=== PATIENT | female | born 1970 | race Caucasian/White ===

== ENCOUNTER 2017-03-30 22:52 | Emergency (ER) | payer OTHER ==
[~2017-03-30] VITALS: Ht 160 cm; Wt 105.8 kg
[2017-03-31 03:13] VITALS: BP 143/86
== END 2017-03-31 03:13 | disposition home or self-care (01) ==
LOC: ED 22:52
DX: J06.9 Acute upper respiratory infection, unspecified (principal)

== ENCOUNTER 2017-07-28 19:07 | Emergency (ER) | payer OTHER ==
[2017-07-28 20:41] VITALS: BP 143/88
== END 2017-07-28 20:41 | disposition home or self-care (01) ==
LOC: ED 19:07
DX: J20.8 Acute bronchitis due to other specified organisms (principal); Z88.5 Allergy status to narcotic agent

== ENCOUNTER 2017-11-28 07:43 | Emergency (ER) | payer OTHER ==
[2017-11-28 07:50] VITALS: BP 163/94
== END 2017-11-28 09:07 | disposition home or self-care (01) ==
LOC: ED 07:43
DX: J06.9 Acute upper respiratory infection, unspecified (principal)
CPT/HCPCS: Q0092

== ENCOUNTER 2018-07-25 17:04 | Emergency (ER) | payer OTHER ==
[~2018-07-25] VITALS: Ht 162.6 cm; Wt 106.6 kg
[2018-07-25 17:19] VITALS: Ht 162.6 cm; Wt 106.6 kg
[2018-07-25 18:58] VITALS: BP 178/104
== END 2018-07-25 18:58 | disposition home or self-care (01) ==
LOC: ED 17:04
DX: S96.911A Strain of unspecified muscle and tendon at ankle and foot level, right foot, initial encounter (principal); K42.9 Umbilical hernia without obstruction or gangrene; K25.9 Gastric ulcer, unspecified as acute or chronic, without hemorrhage or perforation; W22.8XXA Striking against or struck by other objects, initial encounter; Z88.5 Allergy status to narcotic agent; Y93.89 Activity, other specified; Y92.89 Other specified places as the place of occurrence of the external cause; Y99.8 Other external cause status

== ENCOUNTER 2019-01-11 19:33 | Emergency (ER) | payer OTHER ==
[~2019-01-11] VITALS: Ht 160 cm; Wt 107.0 kg
[2019-01-11 19:46] VITALS: Ht 160 cm; Wt 107.0 kg
[2019-01-11 20:55] VITALS: BP 150/94
== END 2019-01-11 20:55 | disposition home or self-care (01) ==
LOC: ED 19:33
DX: S43.402A Unspecified sprain of left shoulder joint, initial encounter (principal); Z88.5 Allergy status to narcotic agent; W01.0XXA Fall on same level from slipping, tripping and stumbling without subsequent striking against object, initial encounter; Y93.89 Activity, other specified; Y92.89 Other specified places as the place of occurrence of the external cause; Y99.8 Other external cause status

== ENCOUNTER 2019-10-04 19:32 | Emergency (ER) | payer OTHER ==
[~2019-10-04] VITALS: Ht 162.6 cm; Wt 103.9 kg
[2019-10-04 20:25] VITALS: Ht 162.6 cm; Wt 103.9 kg
[2019-10-04 22:02] VITALS: BP 124/59
== END 2019-10-04 22:11 | disposition home or self-care (01) ==
LOC: ED 19:32
DX: J11.1 Influenza due to unidentified influenza virus with other respiratory manifestations (principal); Z88.5 Allergy status to narcotic agent
CPT/HCPCS: 87804; J1885

== ENCOUNTER 2020-04-23 10:30 | Emergency (ER) | payer OTHER ==
[~2020-04-23] VITALS: Ht 157.5 cm; Wt 99.8 kg
[2020-04-23 10:45] VITALS: Ht 157.5 cm; Wt 99.8 kg
[2020-04-23 11:20] VITALS: BP 151/72
== END 2020-04-23 11:20 | disposition home or self-care (01) ==
LOC: ED 10:30
DX: B34.9 Viral infection, unspecified (principal); Z88.5 Allergy status to narcotic agent